=== PATIENT | female | born 1960 | race Caucasian/White ===

== ENCOUNTER 2017-09-27 08:30 | Emergency (ER) | payer OTHER ==
[~2017-09-27] VITALS: Ht 160 cm; Wt 79.5 kg
[~2017-09-27 08:30] MED LIST: CYCLOBENZAPRINE10 MG PO; GABAPENTIN600 MG PO
[2017-09-27] MEDS ORDERED: RT ALBUTEROL CC18 GM IH (08:44)
[2017-09-27] MEDS ORDERED: NORCO 325 MG-51 TA1 PO (10:31)
[2017-09-27 10:39] VITALS: BP 126/78
== END 2017-09-27 10:42 | disposition home or self-care (01) ==
LOC: ED 08:30
DX: S39.011A Strain of muscle, fascia and tendon of abdomen, initial encounter (principal); S70.01XA Contusion of right hip, initial encounter; Y92.008 Other place in unspecified non-institutional (private) residence as the place of occurrence of the external cause; W10.8XXA Fall (on) (from) other stairs and steps, initial encounter
CPT/HCPCS: J1885; J2360

== ENCOUNTER 2020-01-20 07:55 | Emergency (ER) | payer BC ==
[~2020-01-20] VITALS: Wt 85.5 kg
[~2020-01-20 07:55] MED LIST changes: +ALBUTEROL2.5 MG/3 M IH; +AZITHROMYCIN 250MGPK PO; +FLOVENT HFA10.6 GM; +IPRATROPIUM BROM3 M1 IH; +NORCO 325 MG-51 TA1 PO; +PREDNISONE20 MG PO; +RT ALBUTEROL CC18 GM IH
[2020-01-20] MEDS ORDERED: PREDNISONE10 MG PO (08:28)
[2020-01-20] MEDS ORDERED: PROAIR HFA0.09 MG/AC IH (08:29)
[2020-01-20] MEDS ORDERED: SYMBICORT1 AE3 IH (08:30)
[2020-01-20 09:04] LABS: BASO # 0.1 (0.02-0.10); EOS # 0.4 (0.04-0.40); EOS % 2.9 % (1.0-5.0); HEMATOCRIT 45.5 % (37.0-47.0); LYMPH# 2.4 (1.50-4.00); MEAN CELL VOLUME 92 fl (78-100); MEAN CORPUSCULAR HEMOGLOBIN 30 pg (27-31); MEAN CORPUSCULAR HGB CONC 33 g/dL (33-37); MEAN PLATELET VOLUME 9.2 fl (7.4-10.4); NEU # 8.4 (1.40-6.50); PLATELET COUNT 312 K/mm3 (130-400); RED BLOOD COUNT 4.94 M/mm3 (4.10-5.30); RED CELL DISTRIBUTION WIDTH 13.1 % (11.5-14.5); WHITE BLOOD COUNT 12.4 K/mm3 (4.8-10.8)
[2020-01-20 09:07] LABS: ALBUMIN 4.3 g/dL (3.5-5.0); POTASSIUM 3.4 mmol/L (3.5-5.1); SODIUM 143 mmol/L (136-145)
[2020-01-20 09:08] LABS: CALCIUM 8.9 mg/dL (8.3-10.5)
[2020-01-20 09:09] LABS: GLUCOSE 93 mg/dL (65-105); TOTAL PROTEIN 7.1 g/dL (6.4-8.3)
[2020-01-20 09:11] LABS: CARBON DIOXIDE 22 mmol/L (22-29); TOTAL BILIRUBIN 0.4 mg/dL (0.2-1.2)
[2020-01-20 09:15] LABS: AST-SGOT 12 U/L (5-34)
[2020-01-20 09:16] LABS: ALT/SGPT 15 U/L (0-55)
[2020-01-20 09:26] LABS: TROPONIN-I < 0.03 ng/mL (<0.030)
[2020-01-20 12:00] VITALS: BP 152/82
== END 2020-01-20 12:17 | disposition short-term general hospital (02) ==
LOC: ED 07:55
PROVIDERS: Nurse Practitioner Family
DX: J44.1 Chronic obstructive pulmonary disease with (acute) exacerbation (principal); J45.901 Unspecified asthma with (acute) exacerbation; F17.210 Nicotine dependence, cigarettes, uncomplicated; Z90.710 Acquired absence of both cervix and uterus; Z88.8 Allergy status to other drugs, medicaments and biological substances; Z79.52 Long term (current) use of systemic steroids
CPT/HCPCS: A4216; J0456; J0696; J2930; J7050